=== PATIENT | male | born 1935 | race Caucasian/White ===

== ENCOUNTER → 2019-10-11 | Outpatient (CLI) | payer MEDICARE | END | disposition home or self-care (01) | LOC: SHCH 11:00 | PROVIDERS: ATTEND Internal Medicine Cardiovascular Disease | DX: I34.0 Nonrheumatic mitral (valve) insufficiency (principal); I51.7 Cardiomegaly | CPT/HCPCS: 93306; 93356 ==

== ENCOUNTER → 2019-10-16 | Outpatient (CLI) | payer MEDICARE ==
[~2019-10-16] VITALS: Ht 188 cm; Wt 98.0 kg
[~2019-10-16] MED LIST: REGADENOSON 0.4 MG/5 ML PF SYG IVP SCH
== END | disposition home or self-care (01) ==
LOC: SHCH 08:00
PROVIDERS: ATTEND Internal Medicine Cardiovascular Disease
DX: I25.9 Chronic ischemic heart disease, unspecified (principal); I51.7 Cardiomegaly
CPT/HCPCS: 78452; 93017; 96374; A9500 ×2; J2785

== ENCOUNTER 2021-03-12 20:11 | Emergency (ER) | payer MEDICARE | END 2021-03-12 22:20 | disposition left against medical advice (07) | LOC: EDH 20:11 | DX: M79.604 Pain in right leg (principal); Z53.21 Procedure and treatment not carried out due to patient leaving prior to being seen by health care provider ==